=== PATIENT | female | born 1955 | race Caucasian/White ===

== ENCOUNTER 2024-10-13 09:08 | Outpatient (CLI) | payer MEDICARE, BC ==
[~2024-10-13 09:08] MED LIST: SODIUM CHLORIDE 0.9% 250 ML in EMPTY BAG 1 BAG IV PRN
[2024-10-13 09:42] VITALS: BP 123/79; PULSE 71; RESP 16; TEMP 97.4
[2024-10-13] MEDS: SODIUM CHLORIDE 0.9% 500 ML 500 ML in EMPTY BAG 1 BAG IV PRN (09:42)
[2024-10-13] MEDS: ZOLEDRONIC ACID 5 MG in SODIUM CHLORIDE 0.9% 100 ML IV NR (09:45)
== END 2024-10-13 13:12 | disposition hospice, home (50) ==
LOC: PROCWHC3 09:08
PROVIDERS: ATTEND Internal Medicine
DX: M81.0 Age-related osteoporosis without current pathological fracture (principal)
CPT/HCPCS: 96365; J3489

== ENCOUNTER → 2024-11-01 | Outpatient (CLI) | payer MEDICARE, BC ==
--- NOTE | 2024-11-01 12:05 | FL ---
EXAMINATION TYPE: FL barium swallow DATE OF EXAM: 11/01/2024 COMPARISON: None. CLINICAL INDICATION: Female, 69 years old with history of R13.19 OTHER DYSPHAGIA; PHH, epigastric marlyn n and reflux-like symptoms. Choking sensation. History of endoscopy in 2023 with gastric polyps TECHNIQUE: A double contrast esophagram is performed utilizing air and barium. A total of 40 second s of fluoroscopic time was utilized during procedure and 51 images obtained. Total dose area product (DAP) in uGy*m?, mGy*cm? (or similar) 322.22. COMPARISON: None FINDINGS: The esophagus shows adequate motility and emptying into the stomach. No evidence of fixed hiatal hernia or stricture noted. A small proximal diverticulum was identified in the midline at mid cervical level above the origin of the esophagus posteriorly. No significant gastroesophageal reflux was seen during real time performance of this study. IMPRESSION: Small diverticulum of the hypopharyngeal space just before esophageal origin. [facility], , 11/01/2024 12:03 PM
== END | disposition home or self-care (01) ==
LOC: RADFLMAIN 10:09
PROVIDERS: ATTEND Internal Medicine Gastroenterology
DX: K22.5 Diverticulum of esophagus, acquired (principal); R13.19 Other dysphagia
CPT/HCPCS: 74220